=== PATIENT | female | born 1980 | race Hispanic/Latino ===

== ENCOUNTER 2020-03-15 00:59 | Outpatient (CLI) | payer BC, SELFPAY ==
[2020-03-15 20:28] LABS: SARS-CoV-2 RNA PCR Negative
== END 2020-03-15 01:00 | disposition home or self-care (01) ==
LOC: ANHCOVIDDT 01:00
PROVIDERS: PCP Family Medicine; Visit Provider Obstetrics & Gynecology Gynecology
DX: Z01.812 Encounter for preprocedural laboratory examination (principal); Z20.828 Contact with and (suspected) exposure to other viral communicable diseases
CPT/HCPCS: 87635; C9803; U0003

== ENCOUNTER 2020-03-15 07:56 | Outpatient (CLI) | payer BC, SELFPAY ==
--- NOTE | 2020-03-15 07:59 | ECG_ITS ---
Measurements Intervals [place] Rate: 75 P: 25 NH: 124 QRS: 6 QRSD: 105 T: 6 QT: 422 QTc: 474 Interpretive Statements SINUS RHYTHM DELAYED PRECORDIAL R/S TRANSITION MINIMAL Q WAVES- HIGH LATERAL LEADS BORDERLINE ECG Electronically Signed On 03-15-2020 8:11:07 DIVERSITY MANAGER by Irieno Antony D.O.
[2020-03-15 08:34] LABS: Anion Gap 12 mmol/L (8-16); Blood Urea Nitrogen 12 mg/dL (7-17); Calcium 8.9 mg/dL (8.4-10.2); Carbon Dioxide 25 mmol/L (22-30); Chloride 101 mmol/L (98-107); Estimated Glomerular Filt Rate > 60; Glucose 221 mg/dL (65-105); Potassium 4.1 mmol/L (3.4-5.0); Sodium 138 mmol/L (137-145)
== END 2020-03-15 07:57 | disposition home or self-care (01) ==
LOC: ANHSURGERY 07:59
PROVIDERS: Anesthesiology; PCP Family Medicine; Visit Provider Obstetrics & Gynecology Gynecology
DX: E11.9 Type 2 diabetes mellitus without complications (principal); Z01.818 Encounter for other preprocedural examination; R94.31 Abnormal electrocardiogram [ECG] [EKG]
CPT/HCPCS: 36415; 80048; 93005

== ENCOUNTER 2020-03-18 00:18 | Day surgery (SDC) | payer BC, SELFPAY ==
[2020-03-04 16:14] VITALS: BMI 46.4
--- NOTE | 2020-03-15 15:40 | WPDANESEPPF ---
Anes - Initial Pre Proc Eval Procedure: Operation Date: 03/18/20 08:30 Proposed Procedures p Hysteroscopy, Dilation And Curettage, Possible Myosure - Enid Bacon MD Date/Time: 03/15/20 15:40 Surgeon: Enid Bacon MD Pre Op Diagnosis: Menorrhaiga/ Fibroids Patient Data Age: 39 Gender: F Height: 1.57 m Weight: 115.21 kg Allergies Allergy/AdvReac Type Severity Reaction Status Date / Time No Known Allergies Allergy Verified 03/18/20 07:14 Home Medications Medication Instructions Recorded Confirmed Type atorvastatin 10 mg PO HS 03/04/20 03/18/20 History gabapentin 400 mg PO TID 03/04/20 03/18/20 History glyburide 5 mg PO DAILY 03/04/20 03/18/20 History insulin glargine [Lantus Solostar 30 unit SUBCUT HS 03/04/20 03/18/20 History U-100 Insulin] metformin 1,000 mg PO BID 03/04/20 03/18/20 History omeprazole 40 mg PO DAILY 03/04/20 03/18/20 History Patient hx anesthesia problems: none Family hx anesthesia problems: none PMFSH Past Medical History Medical History (Updated 03/18/20 @ 07:40 by Enid Bacon MD) Diabetes Fibroid uterus HTN (hypertension) Hypercholesterolemia Morbid obesity with BMI of 40.0-44.9, adult (normal spontaneous vaginal delivery) x 3 Surgical History Surgical History (Updated 03/18/20 @ 07:39 by Enid Bacon MD) History of section, low transverse S/P tubal ligation Family History Family History (Updated 12/06/18 @ 11:41 by DOCTOR UNKNOWN) Father Hypertension Mother Hypertension Other Diabetes mellitus Social History Social History Years smoked: 16 Smoking status: Former smoker Tobacco type: cigarettes Second hand tobacco smoke exposure: No Smoking end date: 11/11/15 Additional smoking assessment comments: smoked on and off occassionally Alcohol intake: never Substance use: never Last use: November 11, 2015 Living arrangements: with family Spiritual care concerns: No Anes - Eval Final PreProcedure Day of Procedure 03/15/20 15:40 Patient weight: morbidly obese Heart: regular rate and rhythm Lungs: clear to auscultation and normal air movement Airway: Mallampati scale class II Neurological: alert and oriented Last oral intake: >/= 8 hours ASA classification: III Emergent: no Anesthetic plan: proceed Anesthesia type and monitoring: general GIVS and LMA Informed Consent: The patient's anesthetic plan and its attendant risks and benefits were discussed with the patient/family/POA. Questions were solicited and answers provided to the satisfaction of the patient/family/POA.
[2020-03-18] VITALS (7 sets, daily range): BP systolic 107–147; BP diastolic 56–95; PULSE 76–81; RESP 14–21; TEMP 36.2; O2SAT 96–100
[2020-03-18] MEDS: ACETAMINOPHEN 500 MG TABLET 1000 MG PO (07:00)
[2020-03-18] MEDS: LACTATED RINGERS 1,000 ML 30 ML IV CONT ×2 (07:10→09:03)
[2020-03-18 07:12] LABS: Glucose Point of Care 267 (65-105)
--- NOTE | 2020-03-18 07:34 | PM.HPGS ---
History of Present Illness History of Present Illness Consent: Risks, benefits, and alternatives have been discussed and questions answered. Patient agrees to proceed with procedure. Chief complaint: Menorrhaiga/ Fibroids Narrative: Trudy Wasserman is a 39 year old female with heavy cycles for several years worsening over last 2 years. U/s done showed 1.7 cm fibroid but did not distinguish where in the uterus. Recommend hysteroscopy with D&C with possible myosure. Risks of infection, bleeding, perforation, and fluid imbalance reviewed. Possible pathology discussed. Questions answered and patient agrees to proceed. [facility] Past Medical History Medical History (Updated 03/18/20 @ 07:40 by Enid Bacon MD) Diabetes Fibroid uterus HTN (hypertension) Hypercholesterolemia Morbid obesity with BMI of 40.0-44.9, adult (normal spontaneous vaginal delivery) x 3 Surgical History Surgical History (Updated 03/18/20 @ 07:39 by Enid Bacon MD) History of section, low transverse S/P tubal ligation Family History Family History (Updated 12/06/18 @ 11:41 by DOCTOR UNKNOWN) Father Hypertension Mother Hypertension Other Diabetes mellitus Social History Social History Years smoked: 16 Smoking status: Former smoker Tobacco type: cigarettes Second hand tobacco smoke exposure: No Smoking end date: 11/11/15 Additional smoking assessment comments: smoked on and off occassionally Alcohol intake: never Substance use: never Last use: November 11, 2015 Living arrangements: with family Spiritual care concerns: No Meds Home Medications and Allergies Home Medications Medication Instructions Recorded Confirmed Type atorvastatin 10 mg PO HS 03/04/20 03/18/20 History gabapentin 400 mg PO TID 03/04/20 03/18/20 History glyburide 5 mg PO DAILY 03/04/20 03/18/20 History insulin glargine [Lantus Solostar 30 unit SUBCUT HS 03/04/20 03/18/20 History U-100 Insulin] metformin 1,000 mg PO BID 03/04/20 03/18/20 History omeprazole 40 mg PO DAILY 03/04/20 03/18/20 History Allergies Allergy/AdvReac Type Severity Reaction Status Date / Time No Known Allergies Allergy Verified 03/18/20 07:14 Vital Signs Vital Signs - 24 hr 03/18/20 06:54 Temperature 97.1 F L Pulse Rate 81 Respiratory Rate 18 Blood Pressure 147/87 H Pulse Oximetry 99 Exam Const: General: no acute distress Resp: Effort & Inspection: normal respiratory effort Cardio: Rate: regular rate Rhythm: regular rhythm : External Female Exam: normal external appearance Speculum Exam - Vagina: normal appearance of the vagina Speculum Exam - Cervix: normal appearance of the cervix Bimanual exam- vagina & uterus: normal bimanual exam Assessment and Plan Assessment and plan (1) Menorrhagia: Code(s): N92.0 - Excessive and frequent menstruation with regular cycle Status: Acute Assessment and Plan: plan to proceed with hysteroscopy and D&C (2) Fibroid uterus: Code(s): D25.9 - Leiomyoma of uterus, unspecified Status: Acute Assessment and Plan: If submucosal, plan myosure ressection if possible
--- NOTE | 2020-03-18 07:41 | WPDHPUPDATE1 ---
History and Physical Update Update Date/Time: 03/18/20 07:41 History and Physical has been reviewed, including an updated exam of the patient. There are NO changes in the patient's condition. Risks, benefits, and alternatives have been discussed and questions answered. Patient agrees to proceed with procedure.
[2020-03-18] MEDS: LIDOCAINE HCL 1% LOCAL INJ 20 ML VIAL 10 ML INFILTRATE (08:44)
--- NOTE | 2020-03-18 08:54 | SUR.OPER ---
500ml ns in, 400ml ns out. aware
--- NOTE | 2020-03-18 08:57 | PM.PROC ---
Procedure Note - Detailed Date of procedure: 03/18/20 Pre-op diagnosis: Menorrhaiga/ Fibroids Post-op diagnosis: same Procedure performed: D&C hysteroscopy Description of procedure: The patient was taken to the operating room and placed in the dorsal lithotomy position under anesthesia. She was prepped and draped in the usual sterile fashion. [place] speculum was placed in the vagina and the cervix is grasped on the anterior lip with a tenaculum. Cervix injected with 1% lidocaine. Uterus sounded to 10cm and the cervix is serially dilated to an 8 Hegar. The diagnostic hysteroscope was placed with no abnormalities noted. The medium sharp curette is used to sharply curette the endometrium until a good uterine cry was noted in all areas. A large amount of material is obtained. All instruments are removed and the patient taken to recovery in stable condition. Sponge, instrument, and needle counts are correct per the OR staff. Anesthesia: MAC and local Surgeon: Enid Bacon MD Estimated blood loss (mL): 5 Drains: No Packing: No Pathology: yes (endometrial curettings) Complications: No immediate complications Condition: stable Disposition: PACU Findings: uterus 10 cm; grossly normal appearing
--- NOTE | 2020-03-18 09:26 | WPDHPUPDATE1 ---
History and Physical Update Update Date/Time: 03/18/20 09:26 History and Physical has been reviewed, including an updated exam of the patient. There are NO changes in the patient's condition. Risks, benefits, and alternatives have been discussed and questions answered. Patient agrees to proceed with procedure.
[2020-03-18 09:36] LABS: Glucose Point of Care 221 (65-105)
== END 2020-03-18 10:46 | disposition home or self-care (01) ==
PROVIDERS: PCP Family Medicine; Visit Provider Obstetrics & Gynecology Gynecology
PROC: 0U5B8ZZ Destruction of Endometrium, Via Natural or Artificial Opening Endoscopic (ICD-10-PCS; CPT 58563; principal; 2020-03-18 08:30)
DX: N92.0 Excessive and frequent menstruation with regular cycle (principal); D25.9 Leiomyoma of uterus, unspecified; I10 Essential (primary) hypertension; E78.00 Pure hypercholesterolemia, unspecified; E11.9 Type 2 diabetes mellitus without complications; Z79.4 Long term (current) use of insulin; E66.01 Morbid (severe) obesity due to excess calories; Z68.42 Body mass index [BMI] 45.0-49.9, adult; Z79.899 Other long term (current) drug therapy; Z87.891 Personal history of nicotine dependence
CPT/HCPCS: 58558; 88305; A9270; J1100; J2250; J2405; J2704; J3010; J7030; J7120

== ENCOUNTER 2020-04-19 13:41 | Outpatient (CLI) | payer BC, SELFPAY ==
--- NOTE | ~2020-04-19 | MM_ITS ---
EXAMINATION: MM diagnostic jessika BI w darron HISTORY: Follow-up right breast asymmetry TECHNIQUE: Additional 3-D tomosynthesis images of the breasts were performed and synthetic 2-D images were generated. CAD analysis was submitted and interpreted. COMPARISON: 01/02/2019 BREAST PARENCHYMAL COMPOSITION: Breast composed of scattered areas of fibroglandular density. FINDINGS: Stable asymmetric fibroglandular tissue in the upper outer quadrant of the right breast. No new masses, calcifications or architectural distortion in either breast to suggest malignancy. IMPRESSION: 1. No mammographic evidence for malignancy in either breast. 2. Routine yearly screening mammogram and regular clinical breast examination are recommended. BI-RADS Category 1: Negative Reviewed, dictated and finalized at location A. DDED SOFTWARE PROGRAMMER IMPRESSION: 1. No mammographic evidence for malignancy in either breast. 2. Routine yearly screening mammogram and regular clinical breast examination a re recommended. BI-RADS Category 1: Negative
== END 2020-04-19 13:42 | disposition home or self-care (01) ==
LOC: ANHIMG 13:43
PROVIDERS: PCP Family Medicine; Visit Provider Obstetrics & Gynecology Gynecology
DX: R92.8 Other abnormal and inconclusive findings on diagnostic imaging of breast (principal)
CPT/HCPCS: 77062; 77066; G0279

== ENCOUNTER 2022-07-10 10:52 | Outpatient (CLI) | payer OTHER, SELFPAY ==
--- NOTE | ~2022-07-10 | DEXA_ITS ---
Bone Density Report Name: DANIA TRIPATHI Age: 42 Sex: Female Ethnicity: Date of : 1980 Indication: postmenopausal; hysterectomy; Referring Provider: ARMEN CAMACHO Study: Bone densitometry was performed. Exam Date: July 10, 2022 Accession number: [id number] Bone Density: Region BMD T-score Z-score Classification AP Spine (L1-L4) 0.864 -1.7 -1.3 Osteopenia Femoral Neck (Left) 0.672 -1.6 -1.5 Osteopenia Total Hip (Left) 0.854 -0.7 -0.8 Normal Femoral Neck (Right) 0.657 -1.7 -1.7 Osteopenia Total Hip (Right) 0.830 -0.9 -1.0 Normal Total Hip Mean 0.842 -0.8 -0.9 Normal World Health Organization criteria for BMD impression classify patients as: Normal (T-score at or above -1.0), Osteopenia (T-score between -1.0 and -2.5), or Osteoporosis (T-score at or below -2.5). 10-year Fracture Risk(1): Major Osteoporotic Fracture 1.4% Hip Fracture 0.1% Reported Risk Factors: [place] (), Neck BMD=0.657, BMI=41.1 (1) FRAX(R) Version 3.08. Fracture probability calculated for an untreated patient. Fracture probability may be lower if the patient has received treatment. Clinical Information Provided by Patient: Has used the following medications: Vitamin D Has the following medical conditions: Hysterectomy, HX OF OVARIAN CA WITH CHEMO IN 2021 Patient maximum height was 62.1 Menopause Age: 41 No regular weight bearing exercise Does not regularly consume dairy products Drinks caffeinated beverages Onset of menses at age 10 Number of children 4 Impression: The patient has low bone mass, based on the Total Spine T-score. The patient has an estimated ten-year risk of hip fracture of 0.1% and an estimated ten-year risk of major fracture of 1.4%, based on the WHO FRAX algorithm. Discussion: BONE DENSITY IS LOW AT ONE OR MORE SKELETAL SITES. This patient's lowest T-score is low at one or more skeletal sites. It meets the World Health Organization's (WHO) criteria for ?low bone mass? (T-score between -1.0 and -2.5). The patient's 10-year risk of fracture as calculated by FRAX is less than the threshold where pharmacological therapy is recommended by the National Osteoporosis Foundation (NOF). However, all treatment decisions require clinical judgment and consideration of individual patient factors, including patient preferences, comorbidities, previous drug use, risk factors not captured in the FRAX model (e.g., frailty, falls, vitamin D deficiency, increased bone turnover, interval significant decline in bone density) and possible under or overestimation of fracture risk by FRAX. The patient should follow a healthful lifestyle (good nutrition with adequate calcium and vitamin D, and appropriate weight-bearing exercise). Follow-Up: Consider repeating this study in 2 to 3 years to reassess this
--- NOTE | ~2022-07-10 | MM_ITS ---
EXAMINATION: MM screening jessika BI w darron HISTORY: Screening TECHNIQUE: Craniocaudal and mediolateral oblique 3-D tomosynthesis images were obtained and synthetic 2-D images were generated. CAD analysis was submitted and interpreted. COMPARISON: Comparison to multiple prior studies sequentially, with oldest reviewed study dated 01/02. BREAST PARENCHYMAL COMPOSITION: There are scattered areas of fibroglandular density. FINDINGS: There is no evidence of suspicious mass, calcification, or architectural distortion to sugg est malignancy in either breast. There has been no suspicious interval change. IMPRESSION: 1. No mammographic evidence of malignancy. 2. Recommend routine screening mammography in one year. BI-RADS Category 1: Negative Reviewed, dictated and finalized at location B. INATION SUPERVISOR
== END 2022-07-10 10:53 ==
LOC: MICIMG 10:56
PROVIDERS: PCP Family Medicine; Visit Provider Obstetrics & Gynecology Gynecology
DX: Z12.31 Encounter for screening mammogram for malignant neoplasm of breast (principal); Z78.0 Asymptomatic menopausal state; M85.88 Other specified disorders of bone density and structure, other site; M85.852 Other specified disorders of bone density and structure, left thigh; M85.851 Other specified disorders of bone density and structure, right thigh
CPT/HCPCS: 77063; 77067; 77080